=== PATIENT | female | born 1975 ===

== ENCOUNTER 2017-02-22 16:24 | Emergency (ER) | payer BC ==
--- NOTE | 2017-02-22 17:55 | C.PDOC ---
History Of Present Illness 41 year old female, with PMHx of Anemia, presents to the ED for evaluation of left-sided neck and shoulder pain which began this morning. Patient also reports a dry cough. Patient denies direct trauma/injury but is unsure whether her symptoms may be caused by performing heavy lifting at work. Patient denies fever, sore throat, and has no other complaint at this time. Time Seen by Provider: 02/22/17 17:46 Chief Complaint (Nursing): Upper Extremity Problem/Injury History Per: Patient History/Exam Limitations: no limitations Onset/Duration Of Symptoms: Hrs Current Symptoms Are (Timing): Still Present Quality: "Pain" Additional History Per: Patient Past Medical History Reviewed: Historical Data, Nursing Documentation, Vital Signs Vital Signs: Last Vital Signs Temp 98 F 02/22/17 19:30 Pulse 78 02/22/17 19:30 Resp 20 02/22/17 19:30 BP 125/80 02/22/17 19:30 Pulse Ox 99 02/22/17 19:30 - Medical History PMH: Anemia, Migraine Surgical History: No Surg Hx Family History: States: Unknown Family Hx - Social History Hx Tobacco Use: No Hx Alcohol Use: No Hx Substance Use: No - Immunization History Hx Tetanus Toxoid Vaccination: No Hx Influenza Vaccination: No Hx Pneumococcal Vaccination: No Review Of Systems Constitutional: Negative for: Fever, Chills ENT: Negative for: Throat Pain Respiratory: Positive for: Cough. Negative for: Sputum Musculoskeletal: Positive for: Neck Pain (left), Shoulder Pain (left) Physical Exam - Physical Exam Appears: Non-toxic, No Acute Distress Skin: Normal Color, Warm, Dry Head: Atraumatic, Normacephalic Eye(s): bilateral: Normal Inspection Oral Mucosa: Moist Neck: Supple Chest: Symmetrical, No Deformity, No Tenderness Cardiovascular: Rhythm Regular, No Murmur Respiratory: Normal Breath Sounds, No Rales, No Rhonchi, No Wheezing Extremity: No Normal ROM (limited in left shoulder due to mild pain with ROM ), Tenderness (left shoulder ), Capillary Refill (less than 2 seconds ), No Deformity, No Swelling Neurological/Psych: Oriented x3, Normal Speech, Normal Cognition Gait: Steady ED Course And Treatment ECG: Interpreted By Me, Viewed By Me ECG Rhythm: Sinus Rhythm Interpretation Of ECG: Normal Sinus Rhythm at rate 76bpm. No ST/T wave changes. Rate From EC O2 Sat by Pulse Oximetry: 100 (on RA) Pulse Ox Interpretation: Normal Medical Decision Making Medical Decision Making: Impression: 41 year old female with left-sided neck and shoulder pain, dry cough Plan: * labs * EKG * CXR * Left shoulder XR * reassess and disposition Progress: labs, EKG, CXR, and left shoulder XR ordered and reviewed. Disposition - [facility]position [facility] [Outside] [facility] [Outside] Disposition: HOME/ ROUTINE Disposition Time: 07:30 Condition: STABLE Additional Instructions: follow up with your doctor. return to er with worsening symptoms or concerns. please see specialists. Prescriptions: Naproxen 500 mg PO BID PRN #14 tab PRN Reason: Pain, Mild (1-3) Instructions: Shoulder Sprain (ED), Viral Syndrome (ED) Forms: [employer] ([place]) - Clinical Impression Clinical Impression: Shoulder pain, Cough - Scribe Statement The provider has reviewed the documentation as recorded by the Scribe (Mariana Alonzo) Provider Attestation: All medical record entries made by the Scribe were at my direction and personally dictated by me. I have reviewed the chart and agree that the record accurately reflects my personal performance of the history, physical exam, medical decision making, and the department course for this patient. I have also personally directed, reviewed, and agree with the discharge instructions and disposition.
[2017-02-22 21:42] VITALS: BP 125/80; PULSE 78; RESP 20; TEMP 98
[2017-02-22 23:47] VITALS: O2SAT 100
--- NOTE | 2017-02-23 08:50 | RAD ---
HISTORY: Cough COMPARISON: No prior. TECHNIQUE: Chest PA and lateral FINDINGS: LUNGS: The lungs are well inflated and clear. PLEURA: No significant pleural effusion identified. No pneumothorax apparent. CARDIOVASCULAR: Normal. OSSEOUS STRUCTURES: No significant abnormalities. VISUALIZED UPPER ABDOMEN: Normal. OTHER FINDINGS: None. IMPRESSION: No active pulmonary disease.
--- NOTE | 2017-02-23 09:01 | RAD ---
PROCEDURE: Radiographs of the Left Shoulder HISTORY: Pain COMPARISON: No prior. FINDINGS: BONES: Bone alignment and mineralization normal. There is no acute displaced fracture or bone destruction. JOINTS: Normal. Glenohumeral and acromioclavicular joints preserved. SOFT TISSUES: Normal. OTHER FINDINGS: None. IMPRESSION: No acute fracture or dislocation.
== END 2017-02-22 19:32 | disposition home or self-care (01) ==
LOC: C.ER 16:24
DX: M25.512 Pain in left shoulder (principal); R05 Cough